=== PATIENT | female | born 1985 | race Two or more races ===

== ENCOUNTER 2022-03-02 15:38 | Emergency (ER) | payer OTHER ==
[2022-03-02 15:45] VITALS: TEMP 97.8; BMI 23.9
[2022-03-02] MEDS ORDERED: ACETAMINOPHEN 1000 MG/100 ML BAG IVPB ONE (16:04)
[2022-03-02] MEDS ORDERED: SODIUM CHLORIDE 0.9% 500 ML INFUS.BAG IV ONE (16:04)
[2022-03-02] MEDS ORDERED: ACETAMINOPHEN INJECTION 100 ML IVPB ONE (16:27)
[2022-03-02 17:40] LABS: PROTHROMBIN TIME (PATIENT) 11.5 SEC (9.7-13.0)
[2022-03-02 17:42] LABS: BASO % 0.1 % (0-2.0); HEMOGLOBIN 12.5 GM/dL (10.7-15.3); LYMPH % 6.7 % (8-40); MCH 29.3 pg (25.7-33.7); MCHC 32.1 g/dl (32.0-36.0); MEAN CELL VOLUME 91.2 fl (80-96); MEAN PLT VOLUME 9.6 fl (7.5-11.1); MONO % 3.1 % (3.8-10.2); NEUT % 90.1 % (42.8-82.8); PLATELET COUNT 147 10^3/uL (134-434); RBC 4.27 M/mm3 (3.60-5.2); RDW 14.5 % (11.6-15.6); WHITE BLOOD COUNT 10.2 K/mm3 (4.0-10.0)
[2022-03-02 17:43] LABS: ACTIVATED PTT 30.3 SECONDS (25.2-36.5)
[2022-03-02 17:58] LABS: CALCIUM 8.4 mg/dL (8.5-10.1)
[2022-03-02 17:59] LABS: ALBUMIN 2.9 g/dl (3.4-5.0); BLOOD UREA NITROGEN 6.4 mg/dL (7-18); MAGNESIUM 1.9 mg/dL (1.8-2.4)
[2022-03-02 18:02] LABS: CREATININE 0.6 mg/dL (0.55-1.3)
[2022-03-02 18:03] LABS: TOT PROT 7.2 g/dl (6.4-8.2)
[2022-03-02 18:04] LABS: BILIRUBIN,TOTAL 0.2 mg/dL (0.2-1)
[2022-03-02 20:53] LABS: PH,URINE 6.5 (5.0-8.0); URINE APPEARANCE CLEAR; URINE BILIRUBIN NEGATIVE (NEGATIVE); URINE COLOR YELLOW; URINE GLUCOSE (UA) NEGATIVE (NEGATIVE); URINE KETONE 3+ (NEGATIVE); URINE LEUK ESTERASE NEGATIVE (NEGATIVE); URINE NITRITE NEGATIVE (NEGATIVE); URINE PROTEIN NEGATIVE (NEGATIVE); URINE UROBILINOGEN 0.2 mg/dL (0.2-1.0)
[2022-03-02 21:38] VITALS: BP 110/75; PULSE 81
== END 2022-03-02 21:39 | disposition home or self-care (01) ==
LOC: JER 15:38
PROC: 3E033GC Introduction of Other Therapeutic Substance into Peripheral Vein, Percutaneous Approach (ICD-10-PCS; principal; 2022-03-02)
DX: O26.892 Other specified pregnancy related conditions, second trimester (principal); R10.30 Lower abdominal pain, unspecified; E86.0 Dehydration; Z3A.22 22 weeks gestation of pregnancy
CPT/HCPCS: 36415; 76801-TC; 80053; 81003; 83690; 83735; 84484; 85025; 85610; 85730; 87086; 99285-25

== ENCOUNTER 2022-03-05 14:06 | Emergency (ER) | payer OTHER ==
[2022-03-05 14:14] VITALS: BMI 24.4
[2022-03-05] MEDS ORDERED: morphine CARPU-JECT 2 MG/1 ML DISP.SYRIN IVPUSH ONE ×2 (15:09→18:40)
[2022-03-05] MEDS ORDERED: SODIUM CHLORIDE 0.9% 500 ML INFUS.BAG IV ONE (15:09)
[2022-03-05 15:43] LABS: BASO % 0.2 % (0-2.0); EOS % 0.5 % (0-4.5); HEMATOCRIT 34.9 % (32.4-45.2); HEMOGLOBIN 11.8 GM/dL (10.7-15.3); LYMPH % 7.1 % (8-40); MCH 29.3 pg (25.7-33.7); MCHC 33.7 g/dl (32.0-36.0); MEAN PLT VOLUME 8.6 fl (7.5-11.1); MONO % 6.2 % (3.8-10.2); PH,URINE 6.5 (5.0-8.0); PLATELET COUNT 240 10^3/uL (134-434); RBC 4.01 M/mm3 (3.60-5.2); RDW 14.1 % (11.6-15.6); URINE APPEARANCE CLEAR; URINE BILIRUBIN NEGATIVE (NEGATIVE); URINE COLOR YELLOW; URINE GLUCOSE (UA) NEGATIVE (NEGATIVE); URINE KETONE 1+ (NEGATIVE); URINE LEUK ESTERASE NEGATIVE (NEGATIVE); URINE NITRITE NEGATIVE (NEGATIVE); URINE PROTEIN NEGATIVE (NEGATIVE); URINE UROBILINOGEN 0.2 mg/dL (0.2-1.0); WHITE BLOOD COUNT 11.9 K/mm3 (4.0-10.0)
[2022-03-05 16:00] LABS: ALBUMIN 2.5 g/dl (3.4-5.0); CALCIUM 8.7 mg/dL (8.5-10.1)
[2022-03-05 16:01] LABS: BLOOD UREA NITROGEN 5.2 mg/dL (7-18)
[2022-03-05 16:04] LABS: CREATININE 0.4 mg/dL (0.55-1.3)
[2022-03-05 16:05] LABS: BILIRUBIN,TOTAL 0.3 mg/dL (0.2-1); TOT PROT 6.9 g/dl (6.4-8.2)
[2022-03-05 19:13] VITALS: TEMP 98.2
[2022-03-05] MEDS ORDERED: morphine CARPU-JECT 4 MG/1 ML DISP.SYRIN IVPUSH ONE (21:22)
[2022-03-05] MEDS ORDERED: morphine SULFATE 4 MG/ML VIAL ONE (22:33)
[2022-03-05] MEDS ORDERED: CEFEPIME HCL/D5W 1 GM/50 ML BAG IVPB ONE (23:46)
[2022-03-06] MEDS ORDERED: ACETAMINOPHEN 1000 MG/100 ML BAG IVPB ONE (01:00)
[2022-03-06] MEDS ORDERED: ACETAMINOPHEN INJECTION 100 ML IVPB ONE (01:01)
[2022-03-06] MEDS ORDERED: CEFEPIME 1 GM/100 ML BAG IVPB ONE (01:45)
[2022-03-06 03:38] VITALS: BP 112/73; PULSE 91
== END 2022-03-06 03:00 | disposition short-term general hospital (02) ==
LOC: JER 14:06
PROC: 3E03329 Introduction of Other Anti-infective into Peripheral Vein, Percutaneous Approach (ICD-10-PCS; principal; 2022-03-05)
PROC: 3E033GC Introduction of Other Therapeutic Substance into Peripheral Vein, Percutaneous Approach (ICD-10-PCS; 2022-03-05)
PROC: 3E033GC Introduction of Other Therapeutic Substance into Peripheral Vein, Percutaneous Approach (ICD-10-PCS; 2022-03-05)
PROC: 3E033GC Introduction of Other Therapeutic Substance into Peripheral Vein, Percutaneous Approach (ICD-10-PCS; 2022-03-05)
PROC: 3E033GC Introduction of Other Therapeutic Substance into Peripheral Vein, Percutaneous Approach (ICD-10-PCS; 2022-03-05)
DX: O99.612 Diseases of the digestive system complicating pregnancy, second trimester (principal); K35.80 Unspecified acute appendicitis; Z3A.22 22 weeks gestation of pregnancy
CPT/HCPCS: 0241U-QW; 36415; 76700-TC; 76856-TC; 80053; 81003; 85025; 99285-25